=== PATIENT | female | born 1945 | race Caucasian/White ===

== ENCOUNTER 2019-10-31 08:10 | Outpatient (CLI) | payer MEDICARE, SELFPAY ==
--- NOTE | 2019-10-31 08:20 | MM_ITS ---
WS: [id number] BILATERAL SCREENING DIGITAL MAMMOGRAM WITH CAD HISTORY: SCREENING COMPARISON: 10/18/2015, 10/26/2017 and 10/07/2013 Bilateral CC and MLO views submitted. Computer aided detection analyzed. Breast composition: There are scattered areas of fibroglandular density. No suspicious masses, microc alcifications or architectural distortion. Bilateral central breast asymmetries are noted on the CC p rojections. These asymmetries have been stable since 2014. There are benign calcifications. MM/[place] [id number] IMPRESSION: BI-RADS: 2-Benign FOLLOW UP: 1 Year Follow-up
== END 2019-10-31 08:11 | disposition home or self-care (01) ==
LOC: RADSHAW 08:13
PROVIDERS: PCP Family Medicine; Visit Provider Family Medicine
DX: Z12.31 Encounter for screening mammogram for malignant neoplasm of breast (principal)
CPT/HCPCS: 77067

== ENCOUNTER 2020-06-11 13:32 | Outpatient (CLI) | payer MEDICARE, SELFPAY ==
--- NOTE | 2020-06-11 13:45 | MR_ITS ---
WS: [id number] MRI HEAD WITH CONTRAST WITH ATTENTION TO THE INTERNAL AUDITORY CANALS TECHNIQUE: Sagittal T1, T2 axial, T2 axial flair, axial susceptibility weighted imaging, axial diffus ion weighted images, and coronal T2 images were obtained. Pre and post T1 axial and post T1 coronal i mages. ADC and FSPGR images. Post gadolinium images with attention to the internal auditory canals. A xial fiesta imaging. 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 Multiple prior MRIs dating back to 2006. FINDINGS: Again seen is the enhancing right IAC vestibular schwannoma today measuring 12 x 6 x 6 mm AP by trans verse by craniocaudal unchanged from previous. This is unchanged over multiple prior examinations. No rmal trigeminal nerve root entry zones. Left IAC normal in appearance. Normal optic chiasm. Normal cavernous sinuses and Meckel's cave. Incidental venous angioma left tempo ral parietal is unchanged. Slight retrolisthesis C3 on C4 with mild central canal stenosis. No restri cted diffusion to suggest acute ischemia. No hemosiderin on the susceptibility weighted images. Mild small vessel changes. Mild parenchymal volume loss. Normal posterior fossa. Normal vascular flow void s at the skull base. No extra-axial fluid collections. Normal mastoid air cells and paranasal sinuses . Small retention cysts in the maxillary sinuses. MR/MR iac's wo/w con* [id number] IMPRESSION: 1. Enhancing IAC vestibular schwannoma unchanged from multiple prior examinati ons with long-term stability. 2. Normal left IAC. 3. Incidental venous angioma in the left temporoparietal lobe. 4. No restricted diffusion to suggest acute ischemia. 5. Mild small vessel changes with mild parenchymal volume loss. 6. No hemosiderin on susceptibly weighted images. 7. Slight retrolisthesis C3 on C4 with mild central canal stenosis.
[2020-06-11 14:29] LABS: Blood Urea Nitrogen 23 mg/dL (8-23)
[2020-06-11] MEDS: gadobenate dimeglumine 20 mL vial IV (14:48)
== END 2020-06-11 13:33 | disposition home or self-care (01) ==
LOC: RADSHAW 13:38
PROVIDERS: PCP Family Medicine; Visit Provider Specialist
DX: D33.3 Benign neoplasm of cranial nerves (principal); R93.89 Abnormal findings on diagnostic imaging of other specified body structures; Q28.3 Other malformations of cerebral vessels
CPT/HCPCS: 70553; 82565; 84520; A9577

== ENCOUNTER → 2020-07-21 09:05 | Outpatient (BNVA) | payer MEDICARE, SELFPAY | PROVIDERS: PCP Family Medicine; Visit Provider Family Medicine | DX: E11.9 Type 2 diabetes mellitus without complications (principal); I10 Essential (primary) hypertension; E78.2 Mixed hyperlipidemia | CPT/HCPCS: 80053; 80061; 83036; 84439; 84443; 85025 ==

== ENCOUNTER → 2020-08-24 09:52 | Outpatient (BNVA) | payer MEDICARE, SELFPAY | PROVIDERS: PCP Family Medicine; Visit Provider Family Medicine | DX: E78.2 Mixed hyperlipidemia (principal) | CPT/HCPCS: 80061 ==

== ENCOUNTER 2020-11-01 08:09 | Outpatient (CLI) | payer MEDICARE, SELFPAY ==
--- NOTE | 2020-11-01 08:21 | MM_ITS ---
WS: [id number] BILATERAL DIGITAL SCREENING MAMMOGRAPHY WITH CAD CLINICAL INFORMATION: SCREENING HISTORY: Screening mammogram. No current complaints. COMPARISON: October 31, 2019 TECHNIQUE: Bilateral CC and MLO views. FINDINGS: Scattered fibroglandular densities bilaterally. No suspicious focal mass, asymmetry, calcifications, or architectural distortion. No evidence of malignancy. Scattered punctate calcifications. Vascular c alcification. MM/[place] [id number] IMPRESSION: BI-RADS: 2-Benign FOLLOW UP: 1 Year Follow-up Recommend return to annual screening mammography.
== END 2020-11-01 08:10 | disposition home or self-care (01) ==
LOC: RADSHAW 08:16
PROVIDERS: PCP Family Medicine; Visit Provider Family Medicine
DX: Z12.31 Encounter for screening mammogram for malignant neoplasm of breast (principal)
CPT/HCPCS: 77067

== ENCOUNTER → 2021-08-31 08:42 | Outpatient (BNVA) | payer MEDICARE, SELFPAY | PROVIDERS: PCP Family Medicine; Visit Provider Family Medicine | DX: E11.9 Type 2 diabetes mellitus without complications (principal); E78.2 Mixed hyperlipidemia; I10 Essential (primary) hypertension; M25.551 Pain in right hip; M79.642 Pain in left hand; M79.641 Pain in right hand; Z85.41 Personal history of malignant neoplasm of cervix uteri | CPT/HCPCS: 73130; 73502; 80053; 80061; 83036; 84439; 84443; 85025 ==

== ENCOUNTER → 2021-09-07 13:11 | Outpatient (BNVA) | payer MEDICARE, SELFPAY | PROVIDERS: PCP Family Medicine; Visit Provider Nurse Practitioner Family | DX: M65.331 Trigger finger, right middle finger (principal); M65.332 Trigger finger, left middle finger | CPT/HCPCS: 99214 ==

== ENCOUNTER → 2021-11-28 08:41 | Outpatient (BNVA) | payer MEDICARE, SELFPAY | PROVIDERS: PCP Family Medicine; Visit Provider Specialist | DX: M65.331 Trigger finger, right middle finger (principal); M65.332 Trigger finger, left middle finger | CPT/HCPCS: 73130; 99204 ==

== ENCOUNTER 2021-11-30 12:54 | Outpatient (CLI) | payer MEDICARE, SELFPAY ==
--- NOTE | 2021-11-30 13:11 | MM_ITS ---
WS: [id number] BILATERAL 3D TOMOSYNTHESIS DIGITAL SCREENING MAMMOGRAPHY WITH CAD CLINICAL INFORMATION: SCREENING HISTORY: Screening mammogram. No current complaints. COMPARISON: November 02, 2019 TECHNIQUE: Bilateral CC and MLO views. FINDINGS: Scattered fibroglandular densities bilaterally. A few incidental punctate calcifications. No suspicio us focal mass, asymmetry, calcifications, or architectural distortion. No evidence of malignancy. MM/[place] [id number] IMPRESSION: BI-RADS: 2-Benign FOLLOW UP: 1 Year Follow-up Recommend return to annual screening mammography.
== END 2021-11-30 12:55 | disposition home or self-care (01) ==
LOC: RAD 12:55
PROVIDERS: PCP Family Medicine; Visit Provider Family Medicine
DX: Z12.31 Encounter for screening mammogram for malignant neoplasm of breast (principal)
CPT/HCPCS: 77063; 77067

== ENCOUNTER → 2022-09-04 09:09 | Outpatient (BNVA) | payer MEDICARE, SELFPAY | PROVIDERS: PCP Family Medicine; Visit Provider Family Medicine | DX: R30.0 Dysuria (principal) | CPT/HCPCS: 81003; 87077; 87086; 87184 ==

== ENCOUNTER → 2022-11-01 09:39 | Outpatient (BNVA) | payer MEDICARE, SELFPAY | PROVIDERS: PCP Family Medicine; Visit Provider Family Medicine | DX: E11.9 Type 2 diabetes mellitus without complications (principal) | CPT/HCPCS: 80053; 80061; 83036; 84439; 84443; 85025 ==

== ENCOUNTER → 2022-11-02 09:45 | Outpatient (BNVA) | payer MEDICARE, SELFPAY | PROVIDERS: PCP Family Medicine; Visit Provider Family Medicine | DX: E79.0 Hyperuricemia without signs of inflammatory arthritis and tophaceous disease; M65.331 Trigger finger, right middle finger; M65.332 Trigger finger, left middle finger | CPT/HCPCS: 84550 ==

== ENCOUNTER 2022-12-05 10:28 | Outpatient (CLI) | payer MEDICARE, SELFPAY ==
--- NOTE | 2022-12-05 10:34 | MM_ITS ---
WS: [id number] BILATERAL 3D TOMOSYNTHESIS DIGITAL SCREENING MAMMOGRAPHY WITH CAD CLINICAL INFORMATION: SCREENING HISTORY: Screening mammogram. No current complaints. COMPARISON: 2021 TECHNIQUE: Bilateral CC and MLO views. FINDINGS: Scattered fibroglandular densities bilaterally. No suspicious focal mass, asymmetry, calcifications, or architectural distortion. No evidence of malignancy. Incidental punctate calcifications. Vascular calcification. IMPRESSION: MM/[place] [id number] BI-RADS: 2-Benign FOLLOW UP: 1 Year Follow-up Recommend return to annual screening mammography.
== END 2022-12-05 10:29 | disposition home or self-care (01) ==
LOC: RAD 10:29
PROVIDERS: PCP Family Medicine; Visit Provider Family Medicine
DX: Z12.31 Encounter for screening mammogram for malignant neoplasm of breast (principal)
CPT/HCPCS: 11102; 17000; 77063; 77067; 99213

== ENCOUNTER → 2023-01-01 10:58 | Outpatient (BNVA) | payer MEDICARE, SELFPAY | PROVIDERS: PCP Family Medicine; Visit Provider Dermatology | DX: C44.519 Basal cell carcinoma of skin of other part of trunk (principal) | CPT/HCPCS: 17262 ==

== ENCOUNTER 2023-09-17 08:30 | Outpatient (CLI) | payer MEDICARE, SELFPAY ==
--- NOTE | 2023-09-17 08:32 | MR_ITS ---
WS: [id number] MRI BRAIN WITH HIGH-RESOLUTION IMAGING THROUGH THE INTERNAL AUDITORY CANALS WITHOUT AND WITH CONTRAST HISTORY: BENIGN NEOPLASM OF CRANIAL NERVES COMPARISON: 06/11/2020, 01/23/2017 TECHNIQUE: Multiplanar, multisequence imaging is performed through the brain. Additional 3 mm imaging performed in multiple planes through the internal auditory canal. Postcontrast imaging with 17 ml's of MultiHance. Reidentified is the enhancing RIGHT IAC vestibular schwannoma which has been previously described. Ma ss measures 11 x 6 x 6 mm which is similar to prior studies. There is diffuse intense enhancement. No interval change. The LEFT IAC is normal. Trigeminal nerve roots are normal. No new mass or progressi on. No mass effect. Cerebellopontine angles are normal. No acute infarct. Diffusion imaging is normal. Mild small vessel ischemic disease has slightly progre ssed since 06/11/2020. No acute infarct. Ventricles and extra-axial spaces are normal. No inferior displacement of cerebellar tonsils. Clivus and pituitary gland are normal. Incidental note is made of a venous angioma in the LEFT temporoparietal region Which was better visualized on the prior exam. No progression. No new vascular malformations. Paranasal sinuses: Normal. Mastoid air cells: Normal. Calvarium and scalp: Normal. Visualized [place] and dural venous sinuses demonstrate no abnormality. MR/MR iac's wo/w con* [id number] IMPRESSION: 1. Long-term stability enhancing IAC vestibular schwannoma measuring 11 x 6 x 6 mm. Stable over multiple prior exams. 2. No additional enhancing masses throughout the brain. No acute infarct. 3. Stable LEFT temporoparietal venous angioma. 4. Mild progression of small vessel ischemic disease since 2020.
[2023-09-17] MEDS: gadobenate dimeglumine 20 mL vial IV (09:43)
== END 2023-09-17 08:31 | disposition home or self-care (01) ==
LOC: RAD 08:31
PROVIDERS: PCP Family Medicine; Visit Provider Specialist
DX: D33.3 Benign neoplasm of cranial nerves (principal); Q28.3 Other malformations of cerebral vessels; I67.89 Other cerebrovascular disease
CPT/HCPCS: 70553; A9577

== ENCOUNTER → 2023-12-06 13:20 | Outpatient (BNVA) | payer MEDICARE, SELFPAY | PROVIDERS: PCP Family Medicine; Visit Provider Nurse Practitioner Family | DX: L57.0 Actinic keratosis (principal); L81.4 Other melanin hyperpigmentation; D18.01 Hemangioma of skin and subcutaneous tissue; L82.1 Other seborrheic keratosis; Z85.828 Personal history of other malignant neoplasm of skin | CPT/HCPCS: 17000; 99213 ==

== ENCOUNTER 2023-12-11 08:22 | Outpatient (CLI) | payer MEDICARE, SELFPAY ==
--- NOTE | 2023-12-11 08:25 | MM_ITS ---
WS: [id number] VIEWS: MLO and CC views both breasts. 3D digital tomosynthesis is also included in this exam. Comparison made with prior exam of 10/01/2012, 10/07/2013, 10/08/2014, 10/18/2015, 10/20/2016, 10/26/2017, 10/28/2018, 10/31/2019, 11/01/2020, 11/30/2021, 12/05/2022.. Findings: There are scattered areas of fibroglandular density. Stable appearing nodular densities and benign-appearing calcifications in both breasts. No new findin g. MM/MM scr BI tomosynthesis [id number] Impression: BI-RADS: 2 - Benign FOLLOW-UP: 1 Year Follow-up This mammogram was also analyzed by the Computer Aided Detection System R2 Imag e [employer].
== END 2023-12-11 08:23 | disposition home or self-care (01) ==
LOC: RAD 08:22
PROVIDERS: PCP Family Medicine; Visit Provider Family Medicine
DX: Z12.31 Encounter for screening mammogram for malignant neoplasm of breast (principal); R92.323 Mammographic fibroglandular density, bilateral breasts
CPT/HCPCS: 77063; 77067

== ENCOUNTER → 2024-05-01 07:32 | Outpatient (BNVA) | payer MEDICARE, SELFPAY | PROVIDERS: PCP Family Medicine; Visit Provider Family Medicine | DX: I10 Essential (primary) hypertension (principal); E78.2 Mixed hyperlipidemia; E11.9 Type 2 diabetes mellitus without complications; Z00.00 Encounter for general adult medical examination without abnormal findings | CPT/HCPCS: 80053; 80061; 83036; 84439; 84443; 85025 ==

== ENCOUNTER → 2024-11-14 09:30 | Outpatient (BNVA) | payer MEDICARE, SELFPAY | PROVIDERS: PCP Family Medicine; Visit Provider Nurse Practitioner Family | DX: Z00.00 Encounter for general adult medical examination without abnormal findings (principal); E53.8 Deficiency of other specified B group vitamins; E78.2 Mixed hyperlipidemia; E11.9 Type 2 diabetes mellitus without complications; E55.9 Vitamin D deficiency, unspecified | CPT/HCPCS: 80053; 80061; 82043; 82306; 82607; 83036; 85025 ==

== ENCOUNTER 2024-12-03 14:14 | Outpatient (CLI) | payer MEDICARE, SELFPAY ==
--- NOTE | 2024-12-03 14:22 | XRR_ITS ---
PROCEDURE INFORMATION: Exam: XR Chest Exam date and time: 12/03/2024 2:49 PM Age: 79 years old Clinical indication: Cough; Additional info: R05.9 - cough, unspecified TECHNIQUE: Imaging protocol: Radiologic exam of the chest. Views: 2 views. COMPARISON: l spine FINDINGS: Lungs: No focal consolidation or other acute appearing pulmonary opacity. Scarring in the lung bases versus atelectasis. Pleural spaces: No pleural effusion or pneumothorax noted. Heart/Mediastinum: There is no cardiomegaly. Bones/joints: No acute osseous abnormality. Intraperitoneal space: There is no free intraperitoneal gas. XR/XR chest 2V* [id number] IMPRESSION: Scarring in the lung bases versus atelectasis.
== END 2024-12-03 14:15 | disposition home or self-care (01) ==
LOC: RAD 14:18
PROVIDERS: PCP Family Medicine; Visit Provider Family Medicine
DX: R05.9 Cough, unspecified (principal); R06.02 Shortness of breath; J98.4 Other disorders of lung
CPT/HCPCS: 71046

== ENCOUNTER → 2024-12-05 10:20 | Outpatient (BNVA) | payer MEDICARE, SELFPAY | PROVIDERS: PCP Family Medicine; Visit Provider Nurse Practitioner Family | DX: L57.8 Other skin changes due to chronic exposure to nonionizing radiation (principal); L81.4 Other melanin hyperpigmentation; D18.01 Hemangioma of skin and subcutaneous tissue; L82.1 Other seborrheic keratosis; Z08 Encounter for follow-up examination after completed treatment for malignant neoplasm; Z85.828 Personal history of other malignant neoplasm of skin; D48.5 Neoplasm of uncertain behavior of skin; L57.0 Actinic keratosis | CPT/HCPCS: 11102; 17000; 99213 ==

== ENCOUNTER 2024-12-15 08:52 | Outpatient (CLI) | payer MEDICARE, SELFPAY ==
--- NOTE | 2024-12-15 08:40 | MM_ITS ---
WS: [id number] BILATERAL SCREENING DIGITAL TOMOSYNTHESIS MAMMOGRAM WITH CAD HISTORY: Z12.39 - Encounter for other screening for malignant neop... COMPARISON: 12/09/2023, 12/05/2022, 10/28/2018 Bilateral CC and MLO views with tomosynthesis and synthetic mammography submitted. Computer aided detection analyzed. Breast composition: There are scattered areas of fibroglandular density. No suspicious masses, microcalcifications or architectural distortion. Asymmetries and calcifications within each breast are stable. MM/MM scr BI tomosynthesis [id number] IMPRESSION: BI-RADS: 2 - Benign. FOLLOW UP: 1 Year Follow-up
== END 2024-12-15 08:53 | disposition home or self-care (01) ==
LOC: RAD 08:53
PROVIDERS: PCP Family Medicine; Visit Provider Nurse Practitioner Family
DX: Z12.31 Encounter for screening mammogram for malignant neoplasm of breast (principal); R92.323 Mammographic fibroglandular density, bilateral breasts; R92.1 Mammographic calcification found on diagnostic imaging of breast
CPT/HCPCS: 77063; 77067

== ENCOUNTER → 2025-02-02 14:24 | Outpatient (BNVA) | payer MEDICARE, SELFPAY | PROVIDERS: PCP Family Medicine; Visit Provider Nurse Practitioner Family | DX: L81.4 Other melanin hyperpigmentation (principal); Z08 Encounter for follow-up examination after completed treatment for malignant neoplasm; Z85.828 Personal history of other malignant neoplasm of skin; C44.519 Basal cell carcinoma of skin of other part of trunk | CPT/HCPCS: 17261; 99213 ==